=== PATIENT | male | born 1955 | race Caucasian/White ===

== ENCOUNTER 2016-12-10 12:05 | Emergency (ER) | payer OTHER ==
[~2016-12-10] VITALS: Ht 172.7 cm; Wt 90.4 kg
[~2016-12-10 12:05] MED LIST: BACLOFEN10 MG PO; FLOMAX0.4 MG PO; LO-DOSE ASPIRIN81 M1 PO; LYRICA150 MG PO; MARINOL5 MG PO; MORPHINE SULFAT20 M1 PO; MOTRIN800 MG PO; MS CONTIN,ORAMO15 M1 PO; MULTIVITAMIN1 EAC2 PO; PERCOCET 10/1 TABLET PO; PRILOSEC OTC20 MG PO; PRILOSEC10 MG PO; REQUIP0.5 MG PO; SIMVASTATIN10 MG PO; ZOFRAN ODT4 MG PO; [UNRECOGNIZED DRUG - OTHER] PO
[2016-12-10 14:07] LABS: HEMATOCRIT 42.9 % (38.0-50.0); MCH 28.5 PG (29.0-34.0); MCHC 33.3 G/DL (30.0-36.0); MCV 85.5 FL (86-99); MEAN PLAT.VOLUME 10.6 uM^3 (9.0-12.4); PLATELET COUNT 235 K/uL (156-360); RBC DIS.WIDTH-CV 13.4 % (11.8-14.6); RED BLOOD COUNT 5.02 M/uL (4.00-5.50); WHITE BLOOD COUNT 6.7 K/uL (4.1-10.2)
[2016-12-10 14:17] LABS: PROTHROMBIN TIME 10.4 (9.2-11.2)
[2016-12-10 14:21] LABS: CHLORIDE 105 mEq/L (99-109); POTASSIUM 4.4 mEq/L (3.7-5.4); SODIUM 141 mEq/L (136-147)
[2016-12-10 14:23] LABS: GLUCOSE 109 mg/dL (70-99)
[2016-12-10 14:24] LABS: ANION GAP 13 MEQ/L (2-14)
[2016-12-10 14:27] LABS: GFR ESTIMATE (CALCULATED) > 59 mL/min/; UREA NITROGEN (BUN) 13 mg/dL (9-23)
[2016-12-10 15:58] VITALS: BP 118/83
== END 2016-12-10 16:00 | disposition short-term general hospital (02) ==
LOC: EME 12:05
PROVIDERS: Nurse Practitioner Family
DX: M62.262 Nontraumatic ischemic infarction of muscle, left lower leg (principal); I74.3 Embolism and thrombosis of arteries of the lower extremities; Z86.73 Personal history of transient ischemic attack (TIA), and cerebral infarction without residual deficits; F17.200 Nicotine dependence, unspecified, uncomplicated
CPT/HCPCS: 80048; 85027; 85610; 99281; 99285; J2060; J7030

== ENCOUNTER → 2017-12-29 | Outpatient (CLI) | payer OTHER | END | disposition home or self-care (01) | LOC: NUC 08:19 | DX: K31.89 Other diseases of stomach and duodenum (principal) | CPT/HCPCS: 78264; A9541 ==